=== PATIENT | male | born 1965 | race American Indian/Alaskan Native ===

== ENCOUNTER 2017-05-09 10:50 | Inpatient (IN) | payer MEDICARE ==
--- NOTE | 2017-05-09 14:11 | Emergency Department Report ---
Blank Doc - Documentation Documentation: Patient is a 51-year-old male who is presenting with some mild weakness secondary to missing his dialysis for approximately 7 days. Patient states he missed dialysis because he was at a family emergency out-of-town rehabilitation services counselor were not able to set up his dialysis. Patient states otherwise he feels fine he states he has not short of breath when he lays flat but otherwise has no major complaints. Patient's rip saw operator is Dr. Martin. Patient had labs ordered and I will contact his rip saw operator for further care
[2017-05-09 14:32] LABS: Basophils # (Auto) 0.1 K/mm3 (0.0-0.1); Basophils % (Auto) 1.1 % (0.0-1.8); Eosinophils # (Auto) 0.2 K/mm3 (0.0-0.4); Eosinophils % (Auto) 2.6 % (0.0-4.3); Hematocrit 36.3 % (35.5-45.6); Hemoglobin 11.8 gm/dl (11.8-15.2); Lymphocytes # (Auto) 1.8 K/mm3 (1.2-5.4); Lymphocytes % (Auto) 21.7 % (13.4-35.0); Mean Corpuscular HGB Conc 33 % (32-34); Mean Corpuscular Hemoglobin 32 pg (28-32); Mean Corpuscular Volume 99 fl (84-94); Monocytes # (Auto) 0.7 K/mm3 (0.0-0.8); Monocytes % (Auto) 7.7 % (0.0-7.3); Platelet Count 217 K/mm3 (140-440); Red Blood Count 3.66 M/mm3 (3.65-5.03); Red Cell Distribution Width 15.3 % (13.2-15.2)
[2017-05-09 14:53] LABS: Calcium 9.2 mg/dL (8.4-10.2)
[2017-05-09] MEDS ORDERED: KIONEX PO ONE (14:57)
[2017-05-09] MEDS ORDERED: D50W (25GM) Syringe IV ONE ×3 (15:01→17:26)
[2017-05-09] MEDS ORDERED: HumuLIN R IV ONE (15:04)
[2017-05-09] MEDS ORDERED: NACL 0.9% 100 ML IV PRN (15:51)
--- NOTE | 2017-05-09 16:13 | Emergency Department Report ---
ED General Adult HPI - General Chief complaint: Weakness Stated complaint: MISSED DIALYSIS 7 DAYS Time Seen by Provider: 05/09/17 14:03 Source: patient Mode of arrival: Ambulatory Limitations: No Limitations - History of Present Illness Initial comments: This is a 51-year-old male nontoxic, well nourished in appearance, no acute signs of distress presents to the ED with c/o of weakness. Patient stated he missed 1 week of dialysis. Patient stated he went out of town due to emergency situation. Patient denies any abdominal pain, nausea, vomiting, chest pain, shortness of breathe, fever, chills, headache, back pain, numbness or tingling. Patient denies any calf pain or tenderness. Allergies includes PCN and Diphenhydramine. -: week(s) (1) Severity scale (0 -10): 0 Improves with: none Worsens with: none Associated Symptoms: denies other symptoms. denies: confusion, chest pain, cough, diaphoresis, fever/chills, headaches, loss of appetite, malaise, nausea/ vomiting, rash, seizure, shortness of breath, syncope, weakness Treatments Prior to Arrival: none - Related Data Home Medications Medication Instructions Recorded Confirmed Last Taken Aspirin [Lo-Dose Aspirin EC] 81 mg PO DAILY 05/09/17 05/09/17 05/08/17 AtorvaSTATin [Lipitor] 20 mg PO QHS 05/09/17 05/09/17 05/08/17 B Complex 11/Folic/C/Biot/Zinc 1 each PO DAILY 05/09/17 05/09/17 05/08/17 [Dialyvite with Zinc Tablet] Carvedilol [Coreg] 25 mg PO BID 05/09/17 05/09/17 05/08/17 Cinacalcet HCl [Sensipar] 60 mg PO DAILY 05/09/17 05/09/17 05/08/17 Clopidogrel [Plavix] 75 mg PO QDAY 05/09/17 05/09/17 05/08/17 ISOSORBIDE MONOnitrate [Imdur ER] 30 mg PO DAILY 05/09/17 05/09/17 05/08/17 Lisinopril [Zestril TAB] 40 mg PO QDAY 05/09/17 05/09/17 05/08/17 Pantoprazole [Protonix] 40 mg PO QDAY 05/09/17 05/09/17 05/08/17 Promethazine [Phenergan TAB] 25 mg PO Q6HR PRN 05/09/17 05/09/17 05/08/17 Sevelamer Carbonate [Renvela] 1,600 mg PO TIDWM 05/09/17 05/09/17 05/08/17 Temazepam [Restoril] 15 mg PO QHS PRN 05/09/17 05/09/17 05/08/17 amLODIPine [Norvasc] 10 mg PO DAILY 05/09/17 05/09/17 05/08/17 cloNIDine [Catapres] 0.2 mg PO BID 05/09/17 05/09/17 05/08/17 hydrALAZINE [Apresoline TAB] 100 mg PO TID 05/09/17 05/09/17 05/08/17 Allergies Allergy/AdvReac Type Severity Reaction Status Date / Time amoxicillin Allergy Hives Verified 05/09/17 12:07 diphenhydramine Allergy Hives Verified 05/09/17 12:07 [From Benadryl] ED Review of Systems ROS: Stated complaint: MISSED DIALYSIS 7 DAYS Other details as noted in HPI Constitutional: denies: chills, fever Eyes: denies: eye pain, eye discharge, vision change ENT: denies: ear pain, throat pain Respiratory: denies: cough, shortness of breath, wheezing Cardiovascular: denies: chest pain, palpitations Endocrine: no symptoms reported Gastrointestinal: denies: abdominal pain, nausea, diarrhea Genitourinary: denies: urgency, dysuria Musculoskeletal: denies: back pain, joint swelling, arthralgia Skin: denies: rash, lesions Neurological: denies: headache, weakness, paresthesias Psychiatric: denies: anxiety, depression Hematological/Lymphatic: denies: easy bleeding, easy bruising ED Past Medical Hx - Past Medical History Previous Medical History?: Yes Hx Congestive Heart Failure: Yes Additional medical history: kidney cancer, heart stents - Surgical History Past Surgical History?: Yes - Social History Smoking Status: Current Every Day Smoker Substance Use Type: None - Medications Home Medications: Home Medications Medication Instructions Recorded Confirmed Last Taken Type Aspirin [Lo-Dose Aspirin EC] 81 mg PO DAILY 05/09/17 05/09/17 05/08/17 History AtorvaSTATin [Lipitor] 20 mg PO QHS 05/09/17 05/09/17 05/08/17 History B Complex 11/Folic/C/Biot/Zinc 1 each PO DAILY 05/09/17 05/09/17 05/08/17 History [Dialyvite with Zinc Tablet] Carvedilol [Coreg] 25 mg PO BID 05/09/17 05/09/17 05/08/17 History Cinacalcet HCl [Sensipar] 60 mg PO DAILY 05/09/17 05/09/17 05/08/17 History Clopidogrel [Plavix] 75 mg PO QDAY 05/09/17 05/09/17 05/08/17 History ISOSORBIDE MONOnitrate [Imdur ER] 30 mg PO DAILY 05/09/17 05/09/17 05/08/17 History Lisinopril [Zestril TAB] 40 mg PO QDAY 05/09/17 05/09/17 05/08/17 History Pantoprazole [Protonix] 40 mg PO QDAY 05/09/17 05/09/17 05/08/17 History Promethazine [Phenergan TAB] 25 mg PO Q6HR PRN 05/09/17 05/09/17 05/08/17 History Sevelamer Carbonate [Renvela] 1,600 mg PO TIDWM 05/09/17 05/09/17 05/08/17 History Temazepam [Restoril] 15 mg PO QHS PRN 05/09/17 05/09/17 05/08/17 History amLODIPine [Norvasc] 10 mg PO DAILY 05/09/17 05/09/17 05/08/17 History cloNIDine [Catapres] 0.2 mg PO BID 05/09/17 05/09/17 05/08/17 History hydrALAZINE [Apresoline TAB] 100 mg PO TID 05/09/17 05/09/17 05/08/17 History ED Physical Exam - General Limitations: No Limitations General appearance: alert, in no apparent distress - Head Head exam: Present: atraumatic, normocephalic - Eye Eye exam: Present: normal appearance Pupils: Present: normal accommodation - ENT ENT exam: Present: normal exam, mucous membranes moist - Neck Neck exam: Present: normal inspection, full ROM - Respiratory Respiratory exam: Present: normal lung sounds bilaterally. Absent: respiratory distress, wheezes, rales, rhonchi, stridor, chest wall tenderness, accessory muscle use, decreased breath sounds, prolonged expiratory - Cardiovascular Cardiovascular Exam: Present: regular rate, normal rhythm, normal heart sounds. Absent: bradycardia, tachycardia, irregular rhythm, systolic murmur, diastolic murmur, rubs, gallop - GI/Abdominal GI/Abdominal exam: Present: soft, normal bowel sounds. Absent: distended, tenderness, guarding, rebound, rigid, diminished bowel sounds - Rectal Rectal exam: Present: deferred - Extremities Exam Extremities exam: Present: normal inspection, full ROM, normal capillary refill - Back Exam Back exam: Present: normal inspection, full ROM - Neurological Exam Neurological exam: Present: alert, oriented X3, normal gait - Psychiatric Psychiatric exam: Present: normal affect, normal mood - Skin Skin exam: Present: warm, dry, intact, normal color. Absent: rash ED Course Vital Signs 05/09/17 12:08 Temperature 98 F Pulse Rate 65 Respiratory 16 Rate Blood Pressure 154/76 O2 Sat by Pulse 96 Oximetry - Reevaluation(s) Reevaluation #1: 05/09/17 16:15 Patient is speaking in full sentences with no signs of distress noted. Reevaluation #2: 05/09/17 17:43 Patient became diaphoretic and figer glucose stick at 20s. D50 received and patient perked back to normal. EKG obtained and was discussed with Dr. Gorman with normal EKG for patient and no changes. - Consultations Consultation #1: 05/09/17 16:15 Patient has been consulted with Dr. Gorman about patient history, physical exam , and labs and examined and screened patient and agrees to ED plan of care and admission plan of care. Consultation #2: 05/09/17 16:15 Michelle Scherer was consulted about patient and exam and accepts patient to his services. ED Medical Decision Making - Lab Data Result diagrams: 05/09/17 14:17 05/09/17 14:17 - Medical Decision Making This is a 51-year-old male that presents with hyperkalemia. Patient is stable and was examined by me and Dr. Gorman. EKG obtained with no ST significant abnormalities. Non-STEMI and signed by Dr. Wolf. Patient received sodium polysturene 30 PO, D50 50 mL IV and insulin 10 IV. Labs obtained. Fingerstick glucose monitoring obtained. Patient is put on current school lunch monitor. Dr. Martinez was consulted and accepts patient and requested for Bridge orders to telemedicine with renal diet. vital signs stable. Patient admitted for hyperkalemia and dialysis. At time of admission, the patient does not seem toxic or ill in appearance. No acute signs of distress noted. Patient agrees to admission treatment plan of care. No further questions noted by the patient. Critical care attestation.: If time is entered above; I have spent that time in minutes in the direct care of this critically ill patient, excluding procedure time. ED Disposition Clinical Impression: Hyperkalemia Disposition: DC-09 OP ADMIT IP TO THIS HOSP Is pt being admited?: Yes Condition: Stable Referrals: PRIMARY CARE, [Primary Care Provider] - 3-5 Days
[2017-05-09] MEDS ORDERED: APRESOLINE IV ONE (18:13)
--- NOTE | 2017-05-09 18:15 | History and Physical Report ---
History of Present Illness Date of examination: 05/09/17 Date of admission: 05/09/17 Chief complaint: CC Feels very weak History of present illness: History of Present Illness 51-year-old AAM with pmh of ESRD HTN Hld and Cad comes in for generalized weakness and sob.Patient missed HD for 1 week bc of family emergency No CP.Orthopnea present.SOB on minimal exertion present. Patient stated he went out of town due to emergency situation. Patient denies any abdominal pain, nausea, vomiting, chest pain, fever, chills, headache, back pain, numbness or tingling. Patient denies any calf pain or tenderness. Past Medical History Previous Medical History?: Yes Hx Congestive Heart Failure: Yes Additional medical history: kidney cancer, heart stents Surgical History Past Surgical History?: Yes Social History Smoking Status: Current Every Day Smoker Substance Use Type: None Family Hx Htn - Medications Home Medications: Home Medications Medication Instructions Recorded Confirmed Last Taken Type Aspirin [Lo-Dose Aspirin EC] 81 mg PO DAILY 05/09/17 05/09/17 05/08/17 History AtorvaSTATin [Lipitor] 20 mg PO QHS 05/09/17 05/09/17 05/08/17 History B Complex 11/Folic/C/Biot/Zinc 1 each PO DAILY 05/09/17 05/09/17 05/08/17 History [Dialyvite with Zinc Tablet] Carvedilol [Coreg] 25 mg PO BID 05/09/17 05/09/17 05/08/17 History Cinacalcet HCl [Sensipar] 60 mg PO DAILY 05/09/17 05/09/17 05/08/17 History Clopidogrel [Plavix] 75 mg PO QDAY 05/09/17 05/09/17 05/08/17 History ISOSORBIDE MONOnitrate [Imdur ER] 30 mg PO DAILY 05/09/17 05/09/17 05/08/17 History Lisinopril [Zestril TAB] 40 mg PO QDAY 05/09/17 05/09/17 05/08/17 History Pantoprazole [Protonix] 40 mg PO QDAY 05/09/17 05/09/17 05/08/17 History Promethazine [Phenergan TAB] 25 mg PO Q6HR PRN 05/09/17 05/09/17 05/08/17 History Sevelamer Carbonate [Renvela] 1,600 mg PO TIDWM 05/09/17 05/09/17 05/08/17 History Temazepam [Restoril] 15 mg PO QHS PRN 05/09/17 05/09/17 05/08/17 History amLODIPine [Norvasc] 10 mg PO DAILY 05/09/17 05/09/17 05/08/17 History cloNIDine [Catapres] 0.2 mg PO BID 05/09/17 05/09/17 05/08/17 History hydrALAZINE [Apresoline TAB] 100 mg PO TID 05/09/17 05/09/17 05/08/17 History Review of Systems ROS: Stated complaint: MISSED DIALYSIS 7 DAYS Other details as noted in HPI Constitutional: denies: chills, fever Eyes: denies: eye pain, eye discharge, vision change ENT: denies: ear pain, throat pain Respiratory: denies: cough, shortness of breath, wheezing Cardiovascular: denies: chest pain, palpitations Endocrine: no symptoms reported Gastrointestinal: denies: abdominal pain, nausea, diarrhea Genitourinary: denies: urgency, dysuria Musculoskeletal: denies: back pain, joint swelling, arthralgia Skin: denies: rash, lesions Neurological: denies: headache, weakness, paresthesias Psychiatric: denies: anxiety, depression Hematological/Lymphatic: denies: easy bleeding, easy bruising Medications and Allergies Allergies Allergy/AdvReac Type Severity Reaction Status Date / Time amoxicillin Allergy Hives Verified 05/09/17 12:07 diphenhydramine Allergy Hives Verified 05/09/17 12:07 [From [facility]] Home Medications Medication Instructions Recorded Confirmed Last Taken Type Aspirin [Lo-Dose Aspirin EC] 81 mg PO DAILY 05/09/17 05/09/17 05/08/17 History AtorvaSTATin [Lipitor] 20 mg PO QHS 05/09/17 05/09/17 05/08/17 History B Complex 11/Folic/C/Biot/Zinc 1 each PO DAILY 05/09/17 05/09/17 05/08/17 History [Dialyvite with Zinc Tablet] Carvedilol [Coreg] 25 mg PO BID 05/09/17 05/09/17 05/08/17 History Cinacalcet HCl [Sensipar] 60 mg PO DAILY 05/09/17 05/09/17 05/08/17 History Clopidogrel [Plavix] 75 mg PO QDAY 05/09/17 05/09/17 05/08/17 History ISOSORBIDE MONOnitrate [Imdur ER] 30 mg PO DAILY 05/09/17 05/09/17 05/08/17 History Lisinopril [Zestril TAB] 40 mg PO QDAY 05/09/17 05/09/17 05/08/17 History Pantoprazole [Protonix] 40 mg PO QDAY 05/09/17 05/09/17 05/08/17 History Promethazine [Phenergan TAB] 25 mg PO Q6HR PRN 05/09/17 05/09/17 05/08/17 History Sevelamer Carbonate [Renvela] 1,600 mg PO TIDWM 05/09/17 05/09/17 05/08/17 History Temazepam [Restoril] 15 mg PO QHS PRN 05/09/17 05/09/17 05/08/17 History amLODIPine [Norvasc] 10 mg PO DAILY 05/09/17 05/09/17 05/08/17 History cloNIDine [Catapres] 0.2 mg PO BID 05/09/17 05/09/17 05/08/17 History hydrALAZINE [Apresoline TAB] 100 mg PO TID 05/09/17 05/09/17 05/08/17 History Active Meds: Active Medications Sodium Chloride (Nacl 0.9%) 100 mls @ 999 mls/hr IV FREDO PRN PRN Reason: Hypotension Exam - Constitutional Vitals: Temp Pulse Resp BP Pulse Ox 98 F 74 20 230/98 98 05/09/17 12:08 05/09/17 18:11 05/09/17 18:11 05/09/17 18:11 05/09/17 18:11 General appearance: Present: mild distress, well-nourished - EENT Eyes: Present: PERRL ENT: hearing intact, clear oral mucosa - Neck Neck: Present: supple, normal ROM - Respiratory Respiratory effort: normal Respiratory: bilateral: CTA - Cardiovascular Heart rate: 80 Rhythm: regular Heart Sounds: Present: S1 & S2. Absent: rub, click - Extremities Extremities: no ischemia, pulses intact, pulses symmetrical, No edema Peripheral Pulses: within normal limits - Abdominal General gastrointestinal: Present: soft, non-tender, non-distended, normal bowel sounds Male genitourinary: Present: normal - Integumentary Integumentary: Present: clear, warm, dry - Musculoskeletal Musculoskeletal: gait normal, strength equal bilaterally - Psychiatric Psychiatric: appropriate mood/affect, intact judgment & insight - Neurologic Neurologic: CNII-XII intact, moves all extremities - Allied Health Allied health notes reviewed: nursing, case management Results - Labs CBC & Chem 7: 05/09/17 14:17 05/09/17 14:17 Labs: Laboratory Last Values WBC 8.5 K/mm3 (4.5-11.0) 05/09/17 14:17 RBC 3.66 M/mm3 (3.65-5.03) 05/09/17 14:17 Hgb 11.8 gm/dl (11.8-15.2) 05/09/17 14:17 Hct 36.3 % (35.5-45.6) 05/09/17 14:17 MCV 99 fl (84-94) H 05/09/17 14:17 MCH 32 pg (28-32) 05/09/17 14:17 MCHC 33 % (32-34) 05/09/17 14:17 RDW 15.3 % (13.2-15.2) H 05/09/17 14:17 Plt Count 217 K/mm3 (140-440) 05/09/17 14:17 Lymph % (Auto) 21.7 % (13.4-35.0) 05/09/17 14:17 [place] % (Auto) 7.7 % (0.0-7.3) H 05/09/17 14:17 Eos % (Auto) 2.6 % (0.0-4.3) 05/09/17 14:17 Baso % (Auto) 1.1 % (0.0-1.8) 05/09/17 14:17 Lymph # 1.8 K/mm3 (1.2-5.4) 05/09/17 14:17 [place] # 0.7 K/mm3 (0.0-0.8) 05/09/17 14:17 Eos # 0.2 K/mm3 (0.0-0.4) 05/09/17 14:17 Baso # 0.1 K/mm3 (0.0-0.1) 05/09/17 14:17 Seg Neutrophils % 66.9 % (40.0-70.0) 05/09/17 14:17 Seg Neutrophils # 5.7 K/mm3 (1.8-7.7) 05/09/17 14:17 Sodium 137 mmol/L (137-145) 05/09/17 14:17 Potassium 6.7 mmol/L (3.6-5.0) H* 05/09/17 14:17 Chloride 93.5 mmol/L (98-107) L 05/09/17 14:17 Carbon Dioxide 19 mmol/L (22-30) L 05/09/17 14:17 Anion Gap 31 mmol/L 05/09/17 14:17 BUN 108 mg/dL (9-20) H 05/09/17 14:17 Creatinine 22.9 mg/dL (0.8-1.5) H 05/09/17 14:17 Estimated GFR 3 ml/min 05/09/17 14:17 BUN/Creatinine Ratio 5 % 05/09/17 14:17 Glucose 91 mg/dL (75-100) 05/09/17 14:17 POC Glucose < 40 (70-105) L 05/09/17 17:24 Calcium 9.2 mg/dL (8.4-10.2) 05/09/17 14:17 - Imaging and Cardiology EKG: report reviewed Assessment and Plan Advance Directives: Yes (FC) VTE prophylaxis?: Chemical Plan of care discussed with patient/family: Yes - Patient Problems (1) Volume overload Current Visit: Yes Status: Acute Plan to address problem: Secondary to missed HD for 1 week Emergent HD today (2) Hyperkalemia Current Visit: Yes Status: Acute Plan to address problem: Kayexalate and Insulin/D50 given in R Recheck K level (3) ESRD (end stage renal disease) Current Visit: Yes Status: Chronic Plan to address problem: Cont HD Nephrology consulted (4) Secondary hyperparathyroidism Current Visit: Yes Status: Chronic (5) HLD (hyperlipidemia) Current Visit: Yes Status: Chronic Qualifiers: Hyperlipidemia type: mixed hyperlipidemia Qualified Code(s): E78.2 - Mixed hyperlipidemia Plan to address problem: Cont statins (6) CAD (coronary artery disease) Current Visit: Yes Status: Chronic Qualifiers: Coronary Disease-Associated Artery/Lesion type: [place] artery [place] vs. transplanted heart: [place] heart Plan to address problem: Cont Plavix and Ismo (7) GERD (gastroesophageal reflux disease) Current Visit: Yes Status: Chronic Qualifiers: Esophagitis presence: without esophagitis Qualified Code(s): K21.9 - Gastro -esophageal reflux disease without esophagitis Plan to address problem: Cont PPI's (8) DVT prophylaxis Current Visit: Yes Status: Acute Plan to address problem: On Heparin
[2017-05-09] MEDS ORDERED: APRESOLINE ONE (18:24)
--- NOTE | 2017-05-09 19:33 | Consultation ---
History of Present Illness - Reason for Consult Consult date: 05/09/17 end stage renal disease, hyperkalemia Requesting physician: DARRIN LEVY - History of Present Illness This is a 51-year-old male with PMHx of hypertension, ESRD, who presents to the ED with c/o of weakness. Patient stated he missed 1 week of dialysis. Patient stated he went out of town due to emergency situation. Patient denies any abdominal pain, nausea, vomiting, diarrhea, abd pain, chest pain, shortness of breathe, fever, chills, headache, back pain, numbness or tingling. Labs showed elevated BUN/Cr at 108/23 along with hyperkalemia with K of 6.7 motion study engineer renal consult requested for management of hyperkalemia/ESRD/HD. 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 Past History Past Medical History: CAD, hypertension, renal failure Past Surgical History: Other (AVF placement ) Social history: denies: smoking, alcohol abuse, prescription drug abuse, IV drug use Family history: hypertension Medications and Allergies Allergies Allergy/AdvReac Type Severity Reaction Status Date / Time amoxicillin Allergy Hives Verified 05/09/17 12:07 diphenhydramine Allergy Hives Verified 05/09/17 12:07 [From Benadryl] Home Medications Medication Instructions Recorded Confirmed Last Taken Type Aspirin [Lo-Dose Aspirin EC] 81 mg PO DAILY 05/09/17 05/09/17 05/08/17 History AtorvaSTATin [Lipitor] 20 mg PO QHS 05/09/17 05/09/17 05/08/17 History B Complex 11/Folic/C/Biot/Zinc 1 each PO DAILY 05/09/17 05/09/17 05/08/17 History [Dialyvite with Zinc Tablet] Carvedilol [Coreg] 25 mg PO BID 05/09/17 05/09/17 05/08/17 History Cinacalcet HCl [Sensipar] 60 mg PO DAILY 05/09/17 05/09/17 05/08/17 History Clopidogrel [Plavix] 75 mg PO QDAY 05/09/17 05/09/17 05/08/17 History ISOSORBIDE MONOnitrate [Imdur ER] 30 mg PO DAILY 05/09/17 05/09/17 05/08/17 History Lisinopril [Zestril TAB] 40 mg PO QDAY 05/09/17 05/09/17 05/08/17 History Pantoprazole [Protonix] 40 mg PO QDAY 05/09/17 05/09/17 05/08/17 History Promethazine [Phenergan TAB] 25 mg PO Q6HR PRN 05/09/17 05/09/17 05/08/17 History Sevelamer Carbonate [Renvela] 1,600 mg PO TIDWM 05/09/17 05/09/17 05/08/17 History Temazepam [Restoril] 15 mg PO QHS PRN 05/09/17 05/09/17 05/08/17 History amLODIPine [Norvasc] 10 mg PO DAILY 05/09/17 05/09/17 05/08/17 History cloNIDine [Catapres] 0.2 mg PO BID 05/09/17 05/09/17 05/08/17 History hydrALAZINE [Apresoline TAB] 100 mg PO TID 05/09/17 05/09/17 05/08/17 History Active Meds: Active Medications Sodium Chloride (Nacl 0.9%) 100 mls @ 999 mls/hr IV FREDO PRN PRN Reason: Hypotension Review of Systems All systems: negative Constitutional: weakness Exam - Vital Signs Vital signs: Vital Signs Temp Pulse Resp BP Pulse Ox 98 F 65 16 154/76 96 05/09/17 12:08 05/09/17 12:08 05/09/17 12:08 05/09/17 12:08 05/09/17 12:08 - General Appearance General appearance: well-developed, well-nourished, appears stated age EENT: ATNC, PERRL, mucous membranes moist Neck: Present: neck supple Respiratory: Clear to Ascultation Heart: regular, S1S2 Gastrointestinal: Present: normoactive bowel sounds Integumentary: no rash, other (+ edema ) Neurologic: no focal deficit, alert and oriented x3, strength 5/5, CN 3-12 intact Psychiatric: mood/affect appropriate, cooperative Results - Lab Results 05/09/17 14:17 05/09/17 14:17 Most recent lab results Calcium 9.2 mg/dL (8.4-10.2) 05/09/17 14:17 Assessment and Plan - Patient Problems (1) Hyperkalemia Current Visit: Yes Status: Acute Plan to address problem: s/p medical treatment for hyperkalemia incl. IV insulin, D50, kayexalate. Arranged urgent HD for correction of hyperkalemia and solute clearance (2) Metabolic acidosis Current Visit: Yes Status: Acute Plan to address problem: to correct with HD (3) Hypertensive chronic kidney disease with stage 5 chronic kidney disease or end stage renal disease Current Visit: Yes Status: Acute Plan to address problem: resume home BP meds, will target UF 2-3L as tolerated for further volume/BP control (4) ESRD (end stage renal disease) Current Visit: Yes Status: Acute Plan to address problem: HD today, then to continue TTS (5) Secondary hyperparathyroidism Current Visit: Yes Status: Acute Plan to address problem: cont sensipar
[2017-05-09] MEDS ORDERED: NACL 0.9 (PRIMING MACHINE ONLY DIALYSIS) MC ONE ×2 (19:51→23:55)
[2017-05-10] MEDS ORDERED: PHENERGAN PO PRN (08:26)
[2017-05-10] MEDS ORDERED: APRESOLINE IV NR (08:30)
[2017-05-10] MEDS ORDERED: NORVASC PO SCH (10:00)
[2017-05-10] MEDS ORDERED: PROTONIX PO SCH (10:00)
[2017-05-10] MEDS ORDERED: NON-FORMULARY (Cinacalcet Hcl [Sensipar] 60 MG) PO SCH (10:00)
[2017-05-10] MEDS ORDERED: ZESTRIL PO SCH (10:00)
[2017-05-10] MEDS ORDERED: PLAVIX PO SCH (10:00)
[2017-05-10] MEDS ORDERED: SENSIPAR PO SCH (10:00)
[2017-05-10] MEDS ORDERED: IMDUR PO SCH (10:00)
[2017-05-10] MEDS ORDERED: COREG PO SCH (10:00)
[2017-05-10] MEDS ORDERED: HALFPRIN EC PO SCH (10:00)
[2017-05-10] MEDS ORDERED: CATAPRES PO SCH (10:00)
[2017-05-10] MEDS ORDERED: RENVELA PO SCH (12:00)
[2017-05-10] MEDS: RENVELA PO SCH ×2 (13:27→18:13)
--- NOTE | 2017-05-10 13:50 | XRay Report ---
CHEST XRAY, 2 VIEWS: History: Productive cough. Findings: There is mild cardiomegaly. Pulmonary vessels are within normal limits. The lungs are clear and fully expanded. No infiltrate, pleural effusion or pneumothorax. Normal thoracic cage. IMPRESSION: Mild cardiomegaly.
[2017-05-10] MEDS ORDERED: APRESOLINE PO SCH (14:00)
--- NOTE | 2017-05-10 15:12 | Progress Note ---
Assessment and Plan - Patient Problems (1) Volume overload Current Visit: Yes Status: Acute Plan to address problem: Secondary to missed HD for 1 week Emergent HD today (2) Hyperkalemia Current Visit: Yes Status: Acute Plan to address problem: Kayexalate and Insulin/D50 given in R Recheck K level (3) ESRD (end stage renal disease) Current Visit: Yes Status: Chronic Plan to address problem: Cont HD Nephrology consulted (4) Secondary hyperparathyroidism Current Visit: Yes Status: Chronic (5) HLD (hyperlipidemia) Current Visit: Yes Status: Chronic Qualifiers: Hyperlipidemia type: mixed hyperlipidemia Qualified Code(s): E78.2 - Mixed hyperlipidemia Plan to address problem: Cont statins (6) CAD (coronary artery disease) Current Visit: Yes Status: Chronic Qualifiers: Coronary Disease-Associated Artery/Lesion type: [place] artery [place] vs. transplanted heart: [place] heart Plan to address problem: Cont Plavix and Ismo (7) GERD (gastroesophageal reflux disease) Current Visit: Yes Status: Chronic Qualifiers: Esophagitis presence: without esophagitis Qualified Code(s): K21.9 - Gastro -esophageal reflux disease without esophagitis Plan to address problem: Cont PPI's (8) DVT prophylaxis Current Visit: Yes Status: Acute Plan to address problem: On Heparin Subjective Date of service: 05/10/17 Objective - Constitutional Vitals: Vital Signs - 12hr 05/10/17 05/10/17 05/10/17 04:59 05:00 05:07 Temperature 98.4 F 98.4 F Pulse Rate 86 89 86 Respiratory 20 20 Rate Blood Pressure 207/74 Blood Pressure [Left] Blood Pressure 207/74 [Right] O2 Sat by Pulse 96 94 91 Oximetry 05/10/17 05/10/17 05/10/17 07:54 07:55 08:40 Temperature 98.8 F 98.9 F Pulse Rate 91 H 90 84 Respiratory 20 20 Rate Blood Pressure 212/79 195/82 Blood Pressure 212/79 [Left] Blood Pressure [Right] O2 Sat by Pulse 94 95 Oximetry 05/10/17 05/10/17 05/10/17 10:15 10:16 10:17 Temperature Pulse Rate 84 84 84 Respiratory Rate Blood Pressure 195/82 195/82 195/82 Blood Pressure [Left] Blood Pressure [Right] O2 Sat by Pulse Oximetry 05/10/17 05/10/17 10:30 13:26 Temperature 98.7 F Pulse Rate 84 77 Respiratory 20 Rate Blood Pressure 195/82 171/66 Blood Pressure [Left] Blood Pressure [Right] O2 Sat by Pulse 97 Oximetry - Labs CBC & Chem 7: 05/09/17 14:17 05/09/17 14:17 Labs: Abnormal lab results 05/09/17 Range/Units 17:24 POC Glucose < 40 L (70-105)
--- NOTE | 2017-05-10 15:53 | Discharge Summary ---
Providers - Providers Date of Admission: 05/09/17 16:19 Date of discharge: 05/10/17 Attending physician: SHELIA MOORE Primary care physician: RICHAR HOFFMAN MD Hospitalization Condition: Stable Disposition: DC-30 STILL A PATIENT - Discharge Diagnoses (1) Volume overload Status: Acute (2) Hyperkalemia Status: Acute (3) ESRD (end stage renal disease) Status: Chronic (4) Secondary hyperparathyroidism Status: Chronic (5) HLD (hyperlipidemia) Status: Chronic Qualifiers: Hyperlipidemia type: mixed hyperlipidemia Qualified Code(s): E78.2 - Mixed hyperlipidemia (6) CAD (coronary artery disease) Status: Chronic Qualifiers: Coronary Disease-Associated Artery/Lesion type: [place] artery [place] vs. transplanted heart: [place] heart (7) GERD (gastroesophageal reflux disease) Status: Chronic Qualifiers: Esophagitis presence: without esophagitis Qualified Code(s): K21.9 - Gastro -esophageal reflux disease without esophagitis (8) DVT prophylaxis Status: Acute Exam - Constitutional Vitals: Temp Pulse Resp BP Pulse Ox 98.7 F 77 20 171/66 97 05/10/17 13:26 05/10/17 13:26 05/10/17 13:26 05/10/17 13:26 05/10/17 13:26 Plan Follow up with: PRIMARY MD DALTON [Primary Care Provider] - 3-5 Days
--- NOTE | 2017-05-10 16:46 | Progress Note ---
Assessment and Plan - Patient Problems (1) Hyperkalemia Current Visit: Yes Status: Acute Plan to address problem: s/p medical treatment for hyperkalemia incl. IV insulin, D50, kayexalate. s/p HD. (2) Metabolic acidosis Current Visit: Yes Status: Acute Plan to address problem: to correct with HD (3) Hypertensive chronic kidney disease with stage 5 chronic kidney disease or end stage renal disease Current Visit: Yes Status: Acute Plan to address problem: resume home BP meds (4) ESRD (end stage renal disease) Current Visit: Yes Status: Chronic Plan to address problem: Pt is on HD MWF schedule as outpatient, stable for discharge from renal stand point. (5) Secondary hyperparathyroidism Current Visit: Yes Status: Chronic Plan to address problem: cont sensipar Subjective Date of service: 05/10/17 Principal diagnosis: ESRD Interval history: Pt awake, alert, in NAD Objective - Vital Signs Vital signs: Vital Signs - 12hr 05/10/17 05/10/17 05/10/17 04:59 05:00 05:07 Temperature 98.4 F 98.4 F Pulse Rate 86 89 86 Respiratory 20 20 Rate Blood Pressure 207/74 Blood Pressure [Left] Blood Pressure 207/74 [Right] O2 Sat by Pulse 96 94 91 Oximetry 05/10/17 05/10/17 05/10/17 07:54 07:55 08:40 Temperature 98.8 F 98.9 F Pulse Rate 91 H 90 84 Respiratory 20 20 Rate Blood Pressure 212/79 195/82 Blood Pressure 212/79 [Left] Blood Pressure [Right] O2 Sat by Pulse 94 95 Oximetry 05/10/17 05/10/17 05/10/17 10:15 10:16 10:17 Temperature Pulse Rate 84 84 84 Respiratory Rate Blood Pressure 195/82 195/82 195/82 Blood Pressure [Left] Blood Pressure [Right] O2 Sat by Pulse Oximetry 05/10/17 05/10/17 10:30 13:26 Temperature 98.7 F Pulse Rate 84 77 Respiratory 20 Rate Blood Pressure 195/82 171/66 Blood Pressure [Left] Blood Pressure [Right] O2 Sat by Pulse 97 Oximetry - General Appearance General appearance: well-developed, well-nourished, appears stated age EENT: ATNC, PERRL, mucous membranes moist Neck: no JVD Respiratory: Present: Clear to Ascultation Cardiology: regular, S1S2 Gastrointestinal: normoactive bowel sounds Integumentary: no rash, other (no edema ) Neurologic: no focal deficit, alert and oriented x3, strength 5/5, CN 3-12 intact Psychiatric: mood/affect appropriate, cooperative - Lab 05/09/17 14:17 05/09/17 14:17 Most recent lab results Calcium 9.2 mg/dL (8.4-10.2) 05/09/17 14:17
[2017-05-10 18:06] VITALS: BP 192/68
[2017-05-10] MEDS ORDERED: RESTORIL PO PRN (22:00)
== END 2017-05-10 18:27 | disposition home or self-care (01) | DRG 682 ==
LOC: EDBD → ED 10:50 → 4A 16:19
PROVIDERS: ADMIT Internal Medicine; ATTEND Internal Medicine
PROC: 5A1D70Z Performance of Urinary Filtration, Intermittent, Less than 6 Hours Per Day (ICD-10-PCS; principal; 2017-05-09)
DX: I12.0 Hypertensive chronic kidney disease with stage 5 chronic kidney disease or end stage renal disease (principal); N18.6 End stage renal disease; N25.81 Secondary hyperparathyroidism of renal origin; E87.2 Acidosis; E87.5 Hyperkalemia; E78.5 Hyperlipidemia, unspecified; E87.70 Fluid overload, unspecified; K21.9 Gastro-esophageal reflux disease without esophagitis; I25.10 Atherosclerotic heart disease of native coronary artery without angina pectoris; Z88.0 Allergy status to penicillin; Z88.8 Allergy status to other drugs, medicaments and biological substances; Z79.899 Other long term (current) drug therapy; Z79.82 Long term (current) use of aspirin; Z85.528 Personal history of other malignant neoplasm of kidney; Z82.49 Family history of ischemic heart disease and other diseases of the circulatory system
CPT/HCPCS: 36415; 71046; 80048; 82962; 85025; 87040; 93005; 93010; 96374; 96375; 99406; J0360; J1815; J7030; Q0169